=== PATIENT | male | born 1990 | race Caucasian/White ===

== ENCOUNTER 2016-11-19 09:03 | Emergency (ER) | payer MEDICAID, OTHER ==
[~2016-11-19] VITALS: Ht 182.9 cm; Wt 72.6 kg
[2016-11-19 10:48] VITALS: BP 155/91
== END 2016-11-19 11:00 ==
LOC: EDBD 09:03 → ER 09:07
DX: S86.912A Strain of unspecified muscle(s) and tendon(s) at lower leg level, left leg, initial encounter (principal); F12.10 Cannabis abuse, uncomplicated; F17.210 Nicotine dependence, cigarettes, uncomplicated; F15.10 Other stimulant abuse, uncomplicated; F11.10 Opioid abuse, uncomplicated; W17.89XA Other fall from one level to another, initial encounter; Y93.39 Activity, other involving climbing, rappelling and jumping off; Y99.8 Other external cause status; Y92.89 Other specified places as the place of occurrence of the external cause
CPT/HCPCS: 29505; 73562